=== PATIENT | female | born 1995 | race African-American/Black ===

== ENCOUNTER 2019-01-02 05:01 | Observation (INO) | payer MEDICAID ==
[~2019-01-02] VITALS: Ht 157.5 cm; Wt 54.4 kg
[2019-01-02 05:58] LABS: Alcohol, Urine < 3.0 mg/dL (0-5); Amphetamine Screen, Urine NEGATIVE (NEGATIVE); Barbiturate Scree,Urine NEGATIVE (NEGATIVE); Benzodiazephine Screen, Urine NEGATIVE (NEGATIVE); Opiate Scree,Urine NEGATIVE (NEGATIVE); Phencyclidine Screen, Urine NEGATIVE (NEGATIVE)
[2019-01-02 06:05] LABS: Cannabinoid Screen, Urine POSITIVE (NEGATIVE); Cocaine Screen, Urine NEGATIVE (NEGATIVE)
[2019-01-02] MEDS ORDERED: PREN-129 OR (06:54)
== END 2019-01-02 07:45 | disposition home or self-care (01) | DRG 566 ==
LOC: LDRP 05:01
PROVIDERS: ADMIT Obstetrics & Gynecology; ATTEND Obstetrics & Gynecology
DX: O26.853 Spotting complicating pregnancy, third trimester (principal); H53.8 Other visual disturbances; N89.8 Other specified noninflammatory disorders of vagina; O62.9 Abnormality of forces of labor, unspecified; Z3A.32 32 weeks gestation of pregnancy
CPT/HCPCS: 59025; 76805; 80307; 81002; G0378

== ENCOUNTER 2019-02-09 10:40 | Observation (INO) | payer MEDICAID ==
[~2019-02-09] VITALS: Ht 33 cm; Wt 0.5 kg
[~2019-02-09 10:40] MED LIST: PREN-129 OR
[2019-02-09] MEDS ORDERED: LACTATED RINGER'S 1,000 ML IV ONE ×2 (11:30)
[2019-02-09] MEDS: TERBUTALINE SULFATE 1 MG/ML 1ML VIAL SC PRN ×2 (12:10→12:42)
[2019-02-09 12:44] LABS: Urine Bacteria NONE SEEN /hpf (None Seen); Urine Blood Negative /uL (Negative); Urine Specific Gravity 1.005 (1.001-1.035); Urine WBC 1 /hpf (0 - 5)
[2019-02-09] MEDS ORDERED: cefTRIAXone 1GM/50ML D5W 50 ML IV ONE (13:00)
[2019-02-09 13:26] LABS: Alcohol, Urine < 3.0 mg/dL (0-5); Amphetamine Screen, Urine NEGATIVE (NEGATIVE); Barbiturate Scree,Urine NEGATIVE (NEGATIVE); Benzodiazephine Screen, Urine NEGATIVE (NEGATIVE); Cocaine Screen, Urine NEGATIVE (NEGATIVE); Opiate Scree,Urine NEGATIVE (NEGATIVE); Phencyclidine Screen, Urine NEGATIVE (NEGATIVE)
[2019-02-09 13:59] LABS: Cannabinoid Screen, Urine POSITIVE (NEGATIVE)
[2019-02-09] MEDS: SODIUM CHLORIDE 0.9% 1,000 ML IV SCH ×2 (14:21→17:11)
[2019-02-09 15:33] LABS: Basophils # (auto) 0 uL; Eosinophils # (auto) 0 uL; Mean Corpuscular Volume 68.5 fL (80.0-100.0); Nucleated Red Blood Cells % 0.3 %; White Blood Cell 6.5 10^3/uL (4.4-10.8)
[2019-02-09 15:35] LABS: Basophils % (auto) 0.1 % (0.0-2.0); Hemoglobin 8.3 g/dL (12.2-16.2); Lymphocytes # (auto) 1.9 uL; Lymphocytes % (auto) 28.5 % (10.0-50.0); Mean Corpuscular Hemoglobin 21.9 pg (28.0-32.0); Monocytes # (auto) 0.3 uL; Monocytes % (auto) 5.3 % (0.0-12.0); Neutrophils # (auto) 4.3 uL; Neutrophils % (auto) 66.1 % (37.0-80.0); Platelet Count (auto) 168 10^3/uL (140-450); Red Cell Distribution Width 18.5 % (11.8-14.3)
[2019-02-09 15:52] LABS: Albumin 2.1 g/dL (3.4-5.0); Calcium 7.6 mg/dL (8.5-10.1); Potassium 3.1 mmol/L (3.5-5.1)
[2019-02-09 15:57] LABS: BUN/Creatinine Ratio 3.2; Bilirubin, Total 0.3 mg/dL (0.2-1.0); Total Protein 5.2 g/dL (6.4-8.2)
[2019-02-09] MEDS ORDERED: POTASSIUM CHL 20 Meq TABLET PO ONE (16:15)
[2019-02-09] MEDS ORDERED: BETAMETHASONE ACET (6MG/ML) 5ML VIAL IM ONE (16:30)
[2019-02-09] MEDS ORDERED: SODIUM CHLORIDE 0.9% 1,000 ML IV SCH (17:21)
[2019-02-09] MEDS ORDERED: MAGNESIUM SULFATE 40MG/ML 1,000 ML IV SCH (17:21)
[2019-02-09] MEDS ORDERED: MAGNESIUM SULFATE 100 ML IV ONE (17:30)
[2019-02-10 04:06] LABS: RPR Non Reactive (Non Reactive)
[2019-02-10 07:10] LABS: Rubella Antibodies, IgG 3.32 index (Immune >0.99)
== END 2019-02-09 19:48 | disposition short-term general hospital (02) | DRG 566 ==
LOC: LDRP 10:40 → UNDODISOB 20:10
PROVIDERS: ADMIT Specialist; ATTEND Specialist
DX: O26.893 Other specified pregnancy related conditions, third trimester (principal); R10.9 Unspecified abdominal pain; O36.5930 Maternal care for other known or suspected poor fetal growth, third trimester, not applicable or unspecified; O99.013 Anemia complicating pregnancy, third trimester; Z3A.37 37 weeks gestation of pregnancy; Z91.048 Other nonmedicinal substance allergy status
CPT/HCPCS: 36415; 59025; 76805; 76818; 80053; 80307; 81001; 81002; 83735; 84550; 85025; 86592; 86703; 86762; 86850; 86900; 86901; 87340; 96365; 96372; G0378; J0696; J3105; J7030